=== PATIENT | male | born 2000 | race Caucasian/White ===

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

== ENCOUNTER → 2025-09-19 | Outpatient (REF) | payer OTHER ==
[2025-09-19 14:14] LABS: IRON (FE) 163 UG/DL (65-175); PERCENT SATURATION 46.8 % (19.7-50.0)
== END ==
LOC: M LAB REF 12:28
PROVIDERS: ATTEND Internal Medicine
DX: R53.83 Other fatigue (principal); R13.10 Dysphagia, unspecified